=== PATIENT | female | born 1930 | race Caucasian/White ===

== ENCOUNTER 2017-01-20 21:12 | Inpatient (IN) | payer MEDICARE, BC ==
[~2017-01-20] VITALS: Ht 162.6 cm; Wt 57.2 kg
--- NOTE | 2017-01-20 21:32 | PHYS DOC ---
Past Medical History Past Medical History: A-Fib, CVA, High Cholesterol Past Surgical History: Hysterectomy Additional Past Surgical Histo: Hernia Additional Information: Non smoker Adult General Chief Complaint Chief Complaint: ABDOMINAL PAIN HPI HPI Patient is a 86 year old female who presents with complaint of right sided pain after fall. Patient is not a Eliquis for prior stroke and fell off of her back porch "one step. She states onto the ground on 01/18/17. No nausea and vomiting but did feel ill tonight after taking a vitamin. The pain is more right-sided in her abdominal wall. She didn't strike her head. No known loss of consciousness. Review of Systems Review of Systems Constitutional: Denies fever or chills Eyes: Denies change in visual acuity, redness, or eye pain HENT: Denies nasal congestion or sore throat Respiratory: Denies cough or shortness of breath Cardiovascular: right rib pain. GI: POS abdominal pain, POS nausea, NO vomiting, bloody stools or diarrhea : Denies dysuria or hematuria Musculoskeletal: Denies back pain or joint pain Current Medications Current Medications Current Medications Medications (Trade) Dose Ordered Sig/Noy Start Time Stop Time Status Last Admin Dose Admin Fentanyl Citrate (Fentanyl 2ml Vial) 50 mcg PRN Q15MIN PRN 01/20/17 22:00 01/21/17 21:59 01/20/17 23:31 50 MCG Info (Do NOT chart on this entry -- for MONITORING) 1 each PRN DAILY PRN 01/20/17 22:15 01/22/17 22:14 Iohexol (Omnipaque 300 Mg/ml) 75 ml 1X ONCE 01/20/17 22:15 01/20/17 22:16 DC 01/20/17 22:25 75 ML Ondansetron HCl (Zofran) 4 mg 1X ONCE 01/20/17 22:00 01/20/17 22:05 DC 01/20/17 22:09 4 MG Sodium Chloride 1,000 ml @ 100 mls/hr Q10H 01/20/17 21:45 01/21/17 07:44 01/20/17 22:09 100 MLS/HR Allergies Allergies Allergies Coded Allergies Type Severity Reaction Last Updated Verified No Known Drug Allergies 01/20/17 No Physical Exam Physical Exam Constitutional: Well developed, well nourished, no acute distress, non-toxic appearance. Brought in by private vehicle. HENT: Bruising noted to the right mandible and jaw. No malocclusion, bilateral external ears normal, oropharynx moist, no oral exudates, nose normal. Eyes: PERRLA, EOMI, conjunctiva normal, no discharge. Neck: Normal range of motion, no tenderness, supple, no stridor. Cardiovascular:Heart rate regular rhythm, no murmur Lungs & Thorax: Bilateral breath sounds clear to auscultation; pain on palpation to the right lateral posterior ribs. No crepitance or subcutaneous emphysema. Abdomen: Bowel sounds normal, soft, positive bowel tenderness right right upper abdomen and right abdominal wall. No bruising noted on the skin, no masses, no pulsatile masses. Skin: Warm, dry, no erythema, no rash. Back: No tenderness, no CVA tenderness. Extremities: No tenderness, no cyanosis, no clubbing, ROM intact, no edema. Neurologic: Alert and oriented X 3, normal motor function, normal sensory function, no focal deficits noted. Psychologic: Affect normal, judgement normal, mood normal. Current Patient Data Vital Signs Vital Signs Date Time Temp Pulse Resp B/P (MAP) Pulse Ox O2 Delivery O2 Flow Rate FiO2 01/20/17 23:31 18 98 01/20/17 22:10 Room Air 01/20/17 21:26 98.4 59 148/72 (97) 98.4 Lab Values Laboratory Tests Test 01/20/17 21:30 01/20/17 23:20 White Blood Count 8.2 x10^3/uL (4.0-11.0) Red Blood Count 4.09 x10^6/uL (3.50-5.40) Hemoglobin 13.5 g/dL (12.0-15.5) Hematocrit 39.8 % (36.0-47.0) Mean Corpuscular Volume 97 fL (79-100) Mean Corpuscular Hemoglobin 33 pg (25-35) Mean Corpuscular Hemoglobin Concent 34 g/dL (31-37) Red Cell Distribution Width 12.8 % (11.5-14.5) Platelet Count 305 x10^3/uL (140-400) Neutrophils (%) (Auto) 64 % (31-73) Lymphocytes (%) (Auto) 24 % (24-48) Monocytes (%) (Auto) 8 % (0-9) Eosinophils (%) (Auto) 3 % (0-3) Basophils (%) (Auto) 1 % (0-3) Neutrophils # (Auto) 5.2 x10^3uL (1.8-7.7) Lymphocytes # (Auto) 2.0 x10^3/uL (1.0-4.8) Monocytes # (Auto) 0.6 x10^3/uL (0.0-1.1) Eosinophils # (Auto) 0.2 x10^3/uL (0.0-0.7) Basophils # (Auto) 0.1 x10^3/uL (0.0-0.2) Prothrombin Time 12.4 SEC (11.7-14.0) Prothrombin Time INR 1.0 (0.8-1.1) PTT 34 SEC (24-38) Sodium Level 140 mmol/L (136-145) Potassium Level 4.3 mmol/L (3.5-5.1) Chloride Level 104 mmol/L (98-107) Carbon Dioxide Level 28 mmol/L (21-32) Anion Gap 8 (6-14) Blood Urea Nitrogen 27 mg/dL (7-20) H Creatinine 0.7 mg/dL (0.6-1.0) Estimated GFR (Cockcroft-Gault) 79.3 BUN/Creatinine Ratio 39 (6-20) H Glucose Level 120 mg/dL (70-99) H Calcium Level 9.5 mg/dL (8.5-10.1) Total Bilirubin 0.3 mg/dL (0.2-1.0) Aspartate Amino Transferase (AST) 43 U/L (15-37) H Alanine Aminotransferase (ALT) 40 U/L (14-59) Alkaline Phosphatase 105 U/L (46-116) Creatine Kinase 326 U/L (26-192) H Creatine Kinase MB (Mass) 1.7 ng/mL (0.0-3.6) Creatine Kinase MB Relative Index 0.5 % (0-4) Troponin I Quantitative < 0.017 ng/mL (0.000-0.055) Total Protein 7.1 g/dL (6.4-8.2) Albumin 3.4 g/dL (3.4-5.0) Albumin/Globulin Ratio 0.9 (1.0-1.7) L Lipase 318 U/L (73-393) Urine Collection Type Unknown Urine Color Yellow Urine Clarity Clear Urine pH 7.5 Urine Specific [place] 1.025 Urine Protein Negative mg/dL (NEG-TRACE) Urine Glucose (UA) Negative mg/dL (NEG) Urine Ketones (Stick) Negative mg/dL (NEG) Urine Blood Negative (NEG) Urine Nitrite Negative (NEG) Urine Bilirubin Negative (NEG) Urine Urobilinogen Dipstick 0.2 mg/dL (0.2 mg/dL) Urine Leukocyte Esterase Large (NEG) Urine RBC Rare /HPF (0-2) Urine WBC 5-10 /HPF (0-4) Urine Squamous Epithelial Cells Few /LPF Urine Bacteria Few /HPF (0-FEW) Urine Mucus Slight /LPF Laboratory Tests 01/20/17 21:30 Laboratory Tests 01/20/17 21:30 EKG EKG EKG interpreted by myself at 2157 PM: NSR, leftward axis, non specific ST changes. Radiology/Procedures Radiology/Procedures [facility] [address] [place] [address] IMAGING REPORT Signed PATIENT: PRIMO TINEO ACCOUNT: [id number] : 1930 LOCATION: ER AGE: 86 SEX: F EXAM STATUS: REG ER ORD. PHYSICIAN: REBECCA PONCE MD REASON: fall on Sat; on eliquis; injury to right side PROCEDURE: CT CHEST ABD PELVIS W/CONTRAST CT scan of the chest, abdomen and pelvis with contrast 01/20/2017 CLINICAL HISTORY: The patient fell 2 days ago with chest abdominal and pelvic pain since. TECHNIQUE: After the intravenous administration of 75 cc of Omnipaque 350, contiguous, 5 mm axial sections were obtained through the chest, abdomen and pelvis. One or more of the following individualized dose reduction techniques were utilized for this study: 1. Automated exposure control. 2. Adjustment of the mA and/or kV according to patient size. 3. Use of iterative reconstruction technique. FINDINGS: No mediastinal hematoma is seen. Moderate atherosclerotic plaque formation is seen involving the thoracic aorta and its branches. The thoracic aorta is tortuous but tapers normally. The heart is mildly enlarged. Calcified right hilar and mediastinal lymph nodes are seen. Minimal dependent subsegmental atelectasis is seen involving both lungs. Small area of probable scarring is seen involving the right upper lobe. No area of consolidation is seen. No pneumothorax or pleural effusion is noted. A 8 mm rounded low-attenuation lesion is seen involving the inferior aspect of the right lobe of the liver. This likely represents a hepatic cyst. The spleen is small. Small punctate calcified granulomas are seen within the spleen. The pancreas, adrenal glands and left kidney are within normal limits. A 1 cm rounded low-attenuation lesion is seen involving the superior aspect of the right kidney. This likely represents a cyst. Moderate atherosclerotic calcification of the abdominal aorta and its branches is seen. The abdominal aorta tapers normally. Air and stool seen throughout the colon. There is no evidence of bowel obstruction. The gallbladder is well-distended. No free fluid or free air is seen within the abdomen. Images through the pelvis demonstrate the urinary bladder distended with urine. No free fluid is seen. No pelvic hematoma is noted. Mild S-shaped curvature of the thoracolumbar spine is seen. Degenerative changes are seen involving the thoracic and throughout the lumbar spine and both hips. The osseous structures are grossly intact. IMPRESSION: No acute abnormality is seen. Electronically signed by: Elian Chappell MD (01/21/2017 12:00 AM) [facility] DICTATED and SIGNED BY: ELIAN CHAPPELL MD DATE: 01/20/172351 CC: REBECCA PONCE MD; NO PCP ~ [facility] [address] [place], [place] [id number] IMAGING REPORT Signed PATIENT: PRIMO TINEO ACCOUNT: [id number] : 1930 LOCATION: ER AGE: 86 SEX: F EXAM STATUS: REG ER ORD. PHYSICIAN: REBECCA PONCE MD REASON: fall on Sat; on eliquis; injury to right side PROCEDURE: CT HEAD AND CERVICAL SPINE WO CT scan of the head without contrast 01/20/2017 Clinical History: Fall with head injury. Technique: Unenhanced, contiguous, 5 mm axial sections were obtained through the head. One or more of the following individualized dose reduction techniques were utilized for this study: 1. Automated exposure control. 2. Adjustment of the mA and/or kV according to patient size. 3. Use of iterative reconstruction technique. Findings: No previous imaging studies are available for comparison. There is generalized parenchymal atrophy. Areas of decreased attenuation are seen within the periventricular and subcortical white matter of both cerebral hemispheres consistent with areas of small vessel ischemic disease. No acute parenchymal abnormality is seen. No extra-axial fluid collection is noted. No skull fracture is seen. Impression: . No acute intracranial abnormality is seen. CT scan of the cervical spine without contrast 01/20/2017 Clinical history: Neck pain post fall. Technique: Unenhanced, contiguous, 0.625 mm axial sections were obtained through the cervical spine. Axial, coronal and sagittal reconstructed images were obtained. One or more of the following individualized dose reduction techniques were utilized for this study: 1. Automated exposure control. 2. Adjustment of the mA and/or kV according to patient size. 3. Use of iterative reconstruction technique. Findings: Sagittal and coronal reconstructed images demonstrate mild lateral curvature of the cervical spine convex to the right. There is slight reversal of the normal cervical lordosis. Degenerative changes consisting of disc space narrowing, vertebral endplate sclerosis and mild anterior and posterior vertebral body osteophyte formation are seen throughout the cervical disc spaces. Fusion across the C5-6 disc space is seen. No fracture or subluxation of the cervical vertebrae is seen. Degenerative changes are seen involving the uncovertebral and facet joints throughout the cervical disc spaces. Mild to moderate atherosclerotic plaque formation is seen involving the carotid bifurcations. Impression: No fracture or subluxation of the cervical vertebra is identified. Electronically signed by: Elian Chappell MD (01/20/2017 11:52 PM) [facility] DICTATED and SIGNED BY: ELIAN CHAPPELL MD DATE: 01/20/17 5679 CC: REBECCA PONCE MD; NO PCP ~ Course & Med Decision Making Course & Med Decision Making Evaluated patient upon arrival. IV established with fentanyl for pain. Concerned about intrathoracic and abdominal bleed and intracranial. CT scans ordered. At 2315PM: Lab back and reviewed-normal. CT scans done with results pending. At 0020 AM: CT results back AND ARE ALL NEGATIVE FOR ACUTE FINDINGS. reviewed findings w patient and family. She has been requiring doses of the fentanyl for pain. This has been helping but obviously the patient cannot go home with that. She also lives alone. She clearly is having difficulty getting around. Will admit for intractable pain status post fall. Will need social media director to evaluate homeless status. I have spoken with the patient and/or caregivers. I have explained the patient' s condition, diagnosis and treatment plan based on the information available to me at this time. I have answered the patient's and/or caregiver's questions and addressed any concerns. The patient and/or caregivers have as good an understanding of the patient's diagnosis, condition and treatment plan as can be expected at this point. The patient has been stabilized within the capability of the emergency department. The patient will be transported for further care and management or will be moved to an observation or inpatient service. I have communicated with the staff or medical practitioner taking over this patient's care. Dragon Disclaimer Dragon Disclaimer This electronic medical record was generated, in whole or in part, using a voice recognition dictation system. Departure Departure Impression: Primary Impression: Fall Additional Impressions: Current use of senior care anticoagulation Intractable abdominal pain Disposition: ADMITTED INPATIENT Admitting Physician: Maira Clark Condition: STABLE Problem Qualifiers Primary Impression: Fall Encounter type: initial encounter Qualified Codes: W19.XXXA - Unspecified fall, initial encounter REBECCA PONCE MD Jan 20, 2017 21:32
[2017-01-20 21:38] LABS: BASO # 0.1 x10^3/uL (0.0-0.2); BASO % 1 % (0-3); EOS % 3 % (0-3); HEMATOCRIT 39.8 % (36.0-47.0); HEMOGLOBIN 13.5 g/dL (12.0-15.5); LYMPH % 24 % (24-48); MEAN CORPUSCULAR HEMOGLOBIN 33 pg (25-35); MEAN CORPUSCULAR HGB CONC 34 g/dL (31-37); MEAN CORPUSCULAR VOLUME 97 fL (79-100); MONO % 8 % (0-9); NEUT % 64 % (31-73); PLATELET COUNT 305 x10^3/uL (140-400); RED BLOOD COUNT 4.09 x10^6/uL (3.50-5.40); RED CELL DISTRIBUTION WIDTH 12.8 % (11.5-14.5); WHITE BLOOD COUNT 8.2 x10^3/uL (4.0-11.0)
[2017-01-20] MEDS ORDERED: IV NORMAL SALINE 1000ML BAG 1,000 ML IV SCH (21:45)
[2017-01-20 21:52] LABS: PROTHROMBIN TIME PATIENT 12.4 SEC (11.7-14.0)
[2017-01-20 22:00] LABS: CALCIUM 9.5 mg/dL (8.5-10.1); CREATININE 0.7 mg/dL (0.6-1.0); GFR 79.3; POTASSIUM 4.3 mmol/L (3.5-5.1)
[2017-01-20] MEDS ORDERED: ONDANSETRON PF 4 MG/2 ML VIAL. IV ONE (22:00)
[2017-01-20 22:06] LABS: ALBUMIN 3.4 g/dL (3.4-5.0); ALBUMIN/GLOBULIN RATIO 0.9 (1.0-1.7); TOTAL BILIRUBIN 0.3 mg/dL (0.2-1.0); TOTAL PROTEIN 7.1 g/dL (6.4-8.2)
[2017-01-20] MEDS: fentaNYL PF VIAL 100 MCG/2 ML VIAL IV PRN ×2 (22:10→23:31)
[2017-01-20] MEDS ORDERED: IOHEXOL 300 MG/ML 75 ML VIAL IV ONE (22:15)
[2017-01-20] MEDS ORDERED: CONTRAST GIVEN MC PRN (22:15)
[2017-01-20 22:47] LABS: CKMB MASS 1.7 ng/mL (0.0-3.6)
[2017-01-20 23:34] LABS: BILIRUBIN,URINE NEGATIVE (NEG); GLUCOSE,URINE NEGATIVE (NEG); NITRITE,URINE NEGATIVE (NEG); PH,URINE 7.5; PROTEIN,URINE NEGATIVE (NEG-TRACE); UROBILINOGEN,URINE 0.2 mg/dL (0.2 mg/dL)
[2017-01-20 23:46] LABS: BACTERIA,URINE FEW /HPF (0-FEW); RBC,URINE RARE /HPF (0-2); SQUAMOUS EPITHELIAL CELL,UR FEW /LPF
--- NOTE | 2017-01-20 23:54 | RAD ---
CT scan of the head without contrast 01/20/2017 Clinical History: Fall with head injury. Technique: Unenhanced, contiguous, 5 mm axial sections were obtained through the head. One or more of the following individualized dose reduction techniques were utilized for this study: 1. Automated exposure control. 2. Adjustment of the mA and/or kV according to patient size. 3. Use of iterative reconstruction technique. Findings: No previous imaging studies are available for comparison. There is generalized parenchymal atrophy. Areas of decreased attenuation are seen within the periventricular and subcortical white matter of both cerebral hemispheres consistent with areas of small vessel ischemic disease. No acute parenchymal abnormality is seen. No extra-axial fluid collection is noted. No skull fracture is seen. Impression: . No acute intracranial abnormality is seen. CT scan of the cervical spine without contrast 01/20/2017 Clinical history: Neck pain post fall. Technique: Unenhanced, contiguous, 0.625 mm axial sections were obtained through the cervical spine. Axial, coronal and sagittal reconstructed images were obtained. One or more of the following individualized dose reduction techniques were utilized for this study: 1. Automated exposure control. 2. Adjustment of the mA and/or kV according to patient size. 3. Use of iterative reconstruction technique. Findings: Sagittal and coronal reconstructed images demonstrate mild lateral curvature of the cervical spine convex to the right. There is slight reversal of the normal cervical lordosis. Degenerative changes consisting of disc space narrowing, vertebral endplate sclerosis and mild anterior and posterior vertebral body osteophyte formation are seen throughout the cervical disc spaces. Fusion across the C5-6 disc space is seen. No fracture or subluxation of the cervical vertebrae is seen. Degenerative changes are seen involving the uncovertebral and facet joints throughout the cervical disc spaces. Mild to moderate atherosclerotic plaque formation is seen involving the carotid bifurcations. Impression: No fracture or subluxation of the cervical vertebra is identified. Electronically signed by: Elian Chappell MD (01/20/2017 11:52 PM) [facility]
--- NOTE | 2017-01-21 00:03 | RAD ---
CT scan of the chest, abdomen and pelvis with contrast 01/20/2017 CLINICAL HISTORY: The patient fell 2 days ago with chest abdominal and pelvic pain since. TECHNIQUE: After the intravenous administration of 75 cc of Omnipaque 350, contiguous, 5 mm axial sections were obtained through the chest, abdomen and pelvis. One or more of the following individualized dose reduction techniques were utilized for this study: 1. Automated exposure control. 2. Adjustment of the mA and/or kV according to patient size. 3. Use of iterative reconstruction technique. FINDINGS: No mediastinal hematoma is seen. Moderate atherosclerotic plaque formation is seen involving the thoracic aorta and its branches. The thoracic aorta is tortuous but tapers normally. The heart is mildly enlarged. Calcified right hilar and mediastinal lymph nodes are seen. Minimal dependent subsegmental atelectasis is seen involving both lungs. Small area of probable scarring is seen involving the right upper lobe. No area of consolidation is seen. No pneumothorax or pleural effusion is noted. A 8 mm rounded low-attenuation lesion is seen involving the inferior aspect of the right lobe of the liver. This likely represents a hepatic cyst. The spleen is small. Small punctate calcified granulomas are seen within the spleen. The pancreas, adrenal glands and left kidney are within normal limits. A 1 cm rounded low-attenuation lesion is seen involving the superior aspect of the right kidney. This likely represents a cyst. Moderate atherosclerotic calcification of the abdominal aorta and its branches is seen. The abdominal aorta tapers normally. Air and stool seen throughout the colon. There is no evidence of bowel obstruction. The gallbladder is well-distended. No free fluid or free air is seen within the abdomen. Images through the pelvis demonstrate the urinary bladder distended with urine. No free fluid is seen. No pelvic hematoma is noted. Mild S-shaped curvature of the thoracolumbar spine is seen. Degenerative changes are seen involving the thoracic and throughout the lumbar spine and both hips. The osseous structures are grossly intact. IMPRESSION: No acute abnormality is seen. Electronically signed by: Elian Chappell MD (01/21/2017 12:00 AM) [facility]
[2017-01-21] MEDS ORDERED: ONDANSETRON PF 4 MG/2 ML VIAL. IV PRN (01:00)
[2017-01-21] MEDS ORDERED: fentaNYL PF VIAL 100 MCG/2 ML VIAL IV PRN (01:00)
[2017-01-21 03:20] VITALS: BP 128/53
[2017-01-21 07:00] VITALS: BP 112/53
--- NOTE | 2017-01-21 07:17 | EKG ---
[facility] [address] [place] [address] Test Date: 2017-01-20 Test Time: 21:57:07 Pat Name: PRIMO TINEO Department: Room: 4 1 Gender: F Video Manager: : 1930 Requested By: REBECCA PONCE Order Number: [id number] Reading MD: Alma Delia Ortega Measurements Intervals [place] Rate: 61 P: -26 OK: 162 QRS: -20 QRSD: 70 T: -10 QT: 408 QTc: 416 Interpretive Statements SINUS RHYTHM LEFTWARD AXIS QRS(T) CONTOUR ABNORMALITY CONSIDER ANTEROSEPTAL MYOCARDIAL DAMAGE T ABNORMALITY IN ANTERIOR LEADS Electronically Signed On 01-21-2017 19:59:28 CDT by Alma Delia Ortega
[2017-01-21] MEDS ORDERED: APIX2.5T PO (08:28)
[2017-01-21] MEDS ORDERED: ATOR20TA58 PO (08:28)
[2017-01-21] MEDS ORDERED: METO25TA4 PO (08:30)
[2017-01-21] MEDS ORDERED: LEVO50TA5 PO (08:30)
[2017-01-21] MEDS ORDERED: ANTI-COAG MONITOR BY PHARMACY. MC PRN (11:15)
[2017-01-21] MEDS ORDERED: LEVOTHYROXINE 50 MCG TABLET PO SCH (11:30)
[2017-01-21] MEDS ORDERED: METOPROLOL TART IMMED RELEASE 25 MG TABLET. PO SCH (11:30)
[2017-01-21] MEDS ORDERED: APIXABAN 2.5 MG TABLET. PO SCH ×2 (11:30→21:00)
[2017-01-21 11:37] VITALS: BP 112/53
[2017-01-21] MEDS ORDERED: ACETAMINOPHEN 325 MG TABLET. PO PRN (11:45)
[2017-01-21] MEDS ORDERED: HYDROcodone/APAP 5/325MG 1 TAB TABLET PO PRN ×2 (11:45)
[2017-01-21] MEDS ORDERED: HYDR-2758 PO (13:41)
--- NOTE | 2017-01-21 18:48 | SSS ---
ADMIT DATE: 01/21/2017 CHIEF COMPLAINT: Abdominal pain. HISTORY OF PRESENT ILLNESS: Mrs. Garland is an 86-year-old woman who presented to the Emergency Room with right-sided severe pain. She states that she woke up yesterday morning fine, but as the morning progressed, she started having worse and worse pain in her right side. She denies any fevers, chills, nausea, vomiting or diarrhea. In her opinion, this is related to her recent fall 4 days ago when she had stepped off a back step at her daughter's house wrong and had fallen on her face. She actually sustained significant bruising at that time as she is on Eliquis. She, however, did not have any abdominal pain at that time. In the Emergency Room, a CT of the abdomen and pelvis was obtained, showing no acute abnormality. No air or free fluid was noted. Liver and gallbladder appeared normal. The patient was admitted for intractable pain. PAST MEDICAL HISTORY: Arthritis, lumbar disk disease, AFib on Eliquis, hypothyroidism. CVA in August of this year and two ventral hernia repair with mesh placement. FAMILY HISTORY: Positive for heart disease. SOCIAL HISTORY: Lives by herself. Family close by. No toxic habits. ALLERGIES: No known drug allergies. MEDICATIONS: MAR reconciled with home medications. REVIEW OF SYSTEMS: The patient relates that her abdominal pain has significantly improved and is barely perceptible. No other symptoms have developed since rest of organ system review is negative. PHYSICAL EXAMINATION: VITAL SIGNS: From today show a blood pressure of 112/53, heart rate of 58, respiratory rate is 16. She is afebrile. GENERAL: This is an 86-year-old, well-nourished woman, alert and oriented, in no acute distress. HEENT: Shows no scleral icterus. She does have bruising on her left chin. NECK: Supple. LUNGS: Clear to auscultation bilaterally. HEART: Fairly regular, without any appreciated murmurs. ABDOMEN: Has positive bowel sounds, soft. There is some tenderness to palpation on right over her lateral ribs. No hepatomegaly appreciated. EXTREMITIES: Show no edema, no clubbing, no cyanosis. SKIN: Warm, soft and dry. LABORATORY DATA: CBC with a WBC of 8.2, hemoglobin 13.5, platelets of 305. Chemistries with a BUN and creatinine of 27 and 0.7, normal electrolytes. AST is at 43. CK slightly elevated at 314. Troponins; however, is negative. UA is negative. IMAGING: CT abdomen and pelvis as above. HOSPITAL COURSE: The patient is an 86-year-old woman who presented with initially intractable abdominal pain, which now has spontaneously resolved. Etiology of this pain is somewhat unclear. No discernible abnormality. Her concern that this may be secondary to something having happened to her hernia repair is probably unlikely. No abnormality can be seen in the area that she actually has pain which is by the way not the area of her hernia. I assured her and her son that I suspect this is also unrelated to her fall several days ago as pain has just started now. I am unfortunately unable to give her diagnosis for the pain, but can assure that no significant abnormalities are discernible on CT. She is therefore agreeable to be discharged to home. Discussed pain regimen with her. Tylenol is probably her best option. She can take an occasional ibuprofen or aspirin, but should not be on this medication regularly given her anticoagulation therapy with Eliquis already. I have also given her a prescription for [place] half to one tab as needed for the acute phase. DISCHARGE DIAGNOSIS: Abdominal pain. DISCHARGE DISPOSITION: To home. DISCHARGE CONDITION: Improved. DISCHARGE MEDICATIONS: Please refer to MAR. DISCHARGE INSTRUCTIONS: The patient will follow up with her PCP in 1 week. NELIDA DONOVAN MD DR: UR/nts JOB#: [id number] / [id number] DEMARCUS
[2017-01-21] MEDS ORDERED: ATORVASTATIN CALCIUM 20 MG TABLET PO SCH (21:00)
== END 2017-01-21 15:34 | disposition home or self-care (01) | DRG 392 ==
LOC: ER 21:12 → 6 SOUTH 01-21 00:35
PROVIDERS: ADMIT Internal Medicine; ATTEND Internal Medicine
DX: R10.9 Unspecified abdominal pain (principal); I48.91 Unspecified atrial fibrillation; E03.9 Hypothyroidism, unspecified; M19.90 Unspecified osteoarthritis, unspecified site; Z79.01 Long term (current) use of anticoagulants; Z86.73 Personal history of transient ischemic attack (TIA), and cerebral infarction without residual deficits; Z90.710 Acquired absence of both cervix and uterus; Z82.49 Family history of ischemic heart disease and other diseases of the circulatory system
CPT/HCPCS: 36415; 70450; 71260; 72125; 74177; 80053; 81001; 82550; 82553; 83690; 84484; 85025; 85610; 85730; 86850; 86900; 86901; 93005; 96374; 96375; 96376; J2405; J3010; J7030; Q9967; 97110; 99285-25